=== PATIENT | male | born 1985 | race Caucasian/White ===

== ENCOUNTER → 2021-05-25 02:53 | Outpatient (CLI) | payer OTHER, SELFPAY ==
[2021-05-26 06:51] LABS: SARS-CoV-2 RNA PCR Negative
== END ==
PROVIDERS: PCP Physician Assistant; Visit Provider Physician Assistant
DX: B34.9 Viral infection, unspecified (principal); Z20.822 Contact with and (suspected) exposure to COVID-19
CPT/HCPCS: C9803; U0003; U0005

== ENCOUNTER 2021-09-14 13:03 | Emergency (ER) | payer OTHER, SELFPAY ==
[2021-09-14 13:14] VITALS: BP 124/77; PULSE 60; RESP 16; TEMP 37.3; O2SAT 99
--- NOTE | 2021-09-14 13:17 | ED.SKABFB ---
HPI - Skin/Abscess/Foreign Bdy General Chief complaint: Skin/Abscess/Foreign Body Stated complaint: cold sore Time Seen by Provider: 09/14/21 13:17 Source: patient Mode of arrival: ambulatory Limitations: no limitations History of Present Illness HPI narrative: 35-year-old male presents with complaint for concern to herpes rash to left upper eyelid. He states that there is some burning pain there. Reports that he had a cold sore approximately 2 to 3 weeks ago. Did take 10 days of antivirals that his PCP prescribed for him. Cold sore was never examined by his PCP. He states that it feels like cold sore keeps trying to come back . States if he applies Abreva it is keeping the cold sore away. He states that he sees little white dots and they go back down when he applies Abreva. Yesterday he went to [facility] for further evaluation of why his cold sore outbreak is still happening. Reports that he was told that there was no cold sore by the PA, but he physician told him that he did see some white dots. Patient states that the PA touched the herpes rash to his upper lip and then touched the patient's eye and forehead area With the same glove. Patient thinks that she spread of the herpes rash to his eyelid. Patient was referred to security software engineer by [facility] But he has not scheduled an appointment. All systems reviewed and negative except as noted above. Related Data Home Medications Medication Instructions Recorded Confirmed carvedilol 09/14/21 furosemide 09/14/21 spironolactone 09/14/21 spironolactone 09/14/21 valsartan 09/14/21 Allergies Allergy/AdvReac Type Severity Reaction Status Date / Time No Known Allergies Allergy Verified 09/14/21 13:14 Review of Systems Review of Systems: CONSTITUTIONAL: Denies fever, chills, or sweats. EYES: Denies visual changes, redness, or discharge. ENT: Denies rhinorrhea, congestion, sore throat, or otalgia. CARDIOVASCULAR: Denies chest pain, palpitations, or edema. RESPIRATORY: Denies cough or dyspnea. GASTROINTESTINAL: Denies abdominal pain, nausea, vomiting, or diarrhea. GENITOURINARY: Denies dysuria or hematuria. SKIN: Denies rash or itching. Reports redness and burning to left upper eyelid. MUSCULOSKELETAL: Denies back pain, joint pain, or myalgia. NEUROLOGIC: Denies headache, numbness, or weakness. PSYCHIATRIC: Denies anxiety or depression. All other systems reviewed are negative, except as documented in HPI. PMFSH Comments At time of signature, agree with nursing past medical, surgical, social and family history. There is no relevant family history pertinent to the presenting complaint. Exam Narrative: GENERAL: This is a well-nourished, well-developed patient, in no apparent distress. HEAD: normocephalic, atraumatic. EYES: PERRL. Sclera clear/white. Vision is grossly intact. EARS: External ears normal NOSE: External nose normal . NECK: Neck supple, non-tender without lymphadenopathy, masses or thyromegaly. CARDIOVASCULAR: Regular rate and rhythm without murmurs, gallops, or rubs. RESPIRATORY: Clear to auscultation. Breath sounds equal bilaterally. No wheezes, rales, or rhonchi. SKIN: warm, Dry, intact with no suspicious lesions or rash, good texture and turgor. Erythema and mild swelling to left upper eyelid. No vesicles noted. NEURO: awake, alert, and oriented to person, place and time. There were no obvious focal neurologic abnormalities. EXTREMITIES: Normal range of motion to all extremities. Course Course Level of Care: Express Care Visit Vital Signs Vital signs: Vital Signs Temperature 37.3 C 09/14/21 13:14 Pulse Rate 60 09/14/21 13:14 Respiratory Rate 16 09/14/21 13:14 Blood Pressure 124/77 09/14/21 13:14 Pulse Oximetry 99 09/14/21 13:14 Temperature 37.3 C 09/14/21 13:14 Pulse Rate 60 09/14/21 13:14 Respiratory Rate 16 09/14/21 13:14 Blood Pressure 124/77 09/14/21 13:14 Pulse Oximetry 99 09/14/21 13:14
== END 2021-09-14 14:40 | disposition home or self-care (01) ==
PROVIDERS: Emergency Provider Nurse Practitioner Family; PCP Physician Assistant
DX: B02.9 Zoster without complications (principal); I10 Essential (primary) hypertension; Z86.16 Personal history of COVID-19
CPT/HCPCS: 99213; G0463

== ENCOUNTER 2022-05-31 23:46 | Emergency (ER) | payer OTHER, SELFPAY ==
[2022-05-31 23:52] VITALS: BP 147/95; PULSE 82; RESP 14; TEMP 36.4; O2SAT 99
--- NOTE | 2022-06-01 00:03 | ED.EYEPROB ---
HPI - Eye Problem General Chief complaint: Eye Problems Stated complaint: right eye pain Time Seen by Provider: 06/01/22 00:02 Source: patient Mode of arrival: ambulatory Limitations: no limitations History of Present Illness HPI Narrative: Patient is a 36 y/o male who presents to the ED with c/o R eye pain. Patient reports he woke up yesterday, 05/31, with a burning sensation in his right eye. He felt as though something was in his eye or he was having allergies. He rubbed his eye around 11 AM yesterday and reported having worsening pain, redness, foreign body sensation since then. Last night he also developed thick mucopurulent discharge from the eye. No symptoms in left eye. He does not wear contacts or glasses. Denies any vision changes, blurry vision, double vision. Denies pain with eye movement. Denies fevers. Related Data Home Medications Medication Instructions Recorded Confirmed carvedilol 25 mg tablet 09/14/21 furosemide 40 mg tablet 09/14/21 spironolactone 25 mg tablet 09/14/21 spironolactone 50 mg tablet 09/14/21 valsartan 320 mg tablet 09/14/21 Allergies Allergy/AdvReac Type Severity Reaction Status Date / Time rosuvastatin [From Crestor] Allergy Hives Verified 05/31/22 23:55 Review of Systems Review of Systems: CONSTITUTIONAL: Denies fever, chills, or sweats. EYES: See HPI. ENT: Denies rhinorrhea, congestion, sore throat. All systems reviewed & are unremarkable except as noted in HPI and below PMFSH Past Medical History Medical History (Updated 06/01/22 @ 00:35 by Eladia Richter PA-C) CHF (congestive heart failure) HTN (hypertension) Long COVID Surgical History Surgical History (Updated 06/01/22 @ 00:17 by Eladia Richter PA-C) No pertinent past surgical history Social History Social History (Updated 06/01/22 @ 00:17 by Eladia Richter PA-C) Smoking status: Never smoker Exam Narrative: GENERAL: Well appearing, morbidly obese, non-toxic, in no acute distress. HEAD: Normocephalic, atraumatic. EYES: PERRLA/EOMI, no pain with extra ocular movements. No periorbital swelling or redness. R eye with diffuse conjunctival injection. Mild amount of mucopurulent drainage from R eye. Conjunctiva clear on L eye, no significant drainage. NECK: Supple. No adenopathy, no masses. RESPIRATORY: Airway patent, respirations nonlabored. CARDIOVASCULAR: Regular rate and rhythm without murmurs, rubs, or gallops. Radial pulses 2+ and equal bilaterally. MUSCULOSKELETAL: Moves all extremities. Strength/ROM intact without gross deformities. SKIN: Warm, dry, normal color. No rashes. NEURO: A&O X3. Speech clear. Cranial nerves II-XII grossly intact. Steady gait. No ataxic movements. PSYCHIATRIC: Appropriate mood and affect. Normal interaction. Course Vital Signs Vital signs: Vital Signs Temperature 97.6 F 05/31/22 23:52 Pulse Rate 82 05/31/22 23:52 Respiratory Rate 14 05/31/22 23:52 Blood Pressure 147/95 H 05/31/22 23:52 Pulse Oximetry 99 05/31/22 23:52 Oxygen Delivery Room Air 05/31/22 23:52 Temperature 97.6 F 05/31/22 23:52 Pulse Rate 82 05/31/22 23:52 Respiratory Rate 14 05/31/22 23:52 Blood Pressure 147/95 H 05/31/22 23:52 Pulse Oximetry 99 05/31/22 23:52 Oxygen Delivery Room Air 05/31/22 23:52 MDM - Eye Problem MDM Narrative Medical decision making narrative: Patient presented to ED with 1 day history of right eye redness, foreign body sensation, drainage. No vision changes reported. Visual acuity equal bilaterally. Exam consistent with bacterial conjunctivitis of right eye. Patient did report rubbing his eye prior to the onset of sx's. Fluorescein staining was performed with Christina lamp examination and there were no signs of conjunctival or corneal abrasion. Patient will be prescribed erythromycin ointment for further management of conjunctivitis. Advised him to follow-up with chocolate molder for further evaluation an
[2022-06-01] MEDS: FLUORESCEIN SOD 1 MG/STRIP EACH EYE (00:27)
[2022-06-01] MEDS: ERYTHROMYCIN OPHTH OINTMENT 1 GM TUBE 1 APPLIC EACH EYE (01:04)
== END 2022-06-01 01:28 | disposition home or self-care (01) ==
PROVIDERS: Emergency Provider Physician Assistant
DX: H10.89 Other conjunctivitis (principal); I50.9 Heart failure, unspecified; I11.0 Hypertensive heart disease with heart failure; U09.9 Post COVID-19 condition, unspecified
CPT/HCPCS: 99283; A9270

== ENCOUNTER 2023-10-18 14:59 | Emergency (ER) | payer OTHER, SELFPAY ==
--- NOTE | 2023-10-18 15:02 | ED.EAR ---
HPI - Ear Problem General Chief complaint: Ear Stated complaint: right ear sensitive,lightheaded Time Seen by Provider: 10/18/23 15:01 Source: patient Mode of arrival: ambulatory Limitations: no limitations History of Present Illness HPI Narrative: Patient is a 37-year-old male who presents with 3 days of ear fullness causing lightheadedness. Patient denies any congestion, sore throat, cough, fever, chills, nausea, vomiting, diarrhea. Does not take any daily allergy medicine. Does report having seasonal allergies. Patient also complains of long COVID symptoms that he has specialists for. MD Complaint: ear pain Related Data Home Medications Medication Instructions Recorded Confirmed carvedilol 25 mg tablet 25 mg PO DAILY 10/18/23 10/18/23 furosemide 40 mg tablet 40 mg PO DAILY 10/18/23 10/18/23 spironolactone 50 mg tablet 50 mg PO DAILY 10/18/23 10/18/23 valsartan 320 mg tablet 320 mg PO DAILY 10/18/23 10/18/23 Allergies Allergy/AdvReac Type Severity Reaction Status Date / Time lisinopril Allergy Intermediate Rash Verified 10/18/23 15:46 rosuvastatin [From Crestor] Allergy Intermediate Hives Verified 10/18/23 15:18 ibuprofen AdvReac Intermediate Hypertensio Verified 10/18/23 15:46 n Review of Systems Review of Systems: All systems reviewed & are unremarkable except as noted in HPI and below Constitutional: Constitutional: Denies body ache(s), Denies chills, Denies fever(s), Denies headache(s) and Denies malaise Eyes: Eyes: Denies blurry vision, Denies eye discharge and Denies irritation ENT: Reports otalgia, Denies headache(s), Denies nasal congestion, Denies nasal discharge and Denies sore throat Cardiovascular: Cardiovascular: Denies chest pain, Denies edema, Denies palpitations and Denies dyspnea on exertion Respiratory: Respiratory: Denies cough and Denies dyspnea on exertion Gastrointestinal: Gastrointestinal: Denies abdominal pain, Denies diarrhea, Denies nausea and Denies vomiting Musculoskeletal: Musculoskeletal: Denies back pain, Denies arthralgias and Denies muscle weakness Integumentary/Breasts: Skin/Breast: Denies pruritus and Denies rash Neurologic: Denies headache(s) Psychiatric: Psychiatric: Reports no additional psychiatric complaints Endocrine: Endocrine: Denies palpitations PMFSH Past Medical History Medical History CHF (congestive heart failure) HTN (hypertension) Long COVID Surgical History Surgical History No pertinent past surgical history Social History Social History Smoking status: Never smoker Comments At time of signature, agree with nursing past medical, surgical, social and family history. There is no relevant family history pertinent to the presenting complaint? Exam Const: General: cooperative, healthy appearing, no acute distress and well nourished Nutritional Appearance: well nourished Orientation/consciousness: patient oriented x3 Limitations: no limitations HENMT: Head: normal to inspection, normocephalic and atraumatic Ears: hearing grossly normal bilaterally, EAC's normal, no periauricular adenopathy and TM abnormal wth effusion serous bilateral Face/Nose/Sinus: Normal external nose present, Normal nares present, Normal nasal mucous membranes and turbinates present, No nasal discharge present, normal facial exam and sinuses nontender Face and sinus: normal facial exam and sinuses nontender Mouth: Yes Normal oral and palatal mucosa present, Yes lip normal, Yes tongue normal and Yes moist mucous membranes Throat: posterior oropharynx normal, tonsils normal and uvula midline Eyes: General: appearance normal, both eyes and all related structures Alignment and Position: alignment normal and position normal Eyelids: eyelids normal Pupils: Equal, round and reactive pupils present EOM: EOMs i
[2023-10-18 15:22] VITALS: BP 120/65; PULSE 64; RESP 16; TEMP 37.2; O2SAT 99
== END 2023-10-18 16:11 | disposition home or self-care (01) ==
PROVIDERS: Emergency Provider Nurse Practitioner Family
DX: H65.03 Acute serous otitis media, bilateral (principal); R42 Dizziness and giddiness; I11.0 Hypertensive heart disease with heart failure; I50.9 Heart failure, unspecified; Z86.16 Personal history of COVID-19
CPT/HCPCS: 99213; G0463

== ENCOUNTER 2024-01-01 13:57 | Emergency (ER) | payer OTHER, SELFPAY ==
[2024-01-01 14:05] VITALS: BP 126/69; PULSE 68; RESP 16; TEMP 37.3; O2SAT 98
--- NOTE | 2024-01-01 14:05 | ED.EYEPROB ---
HPI - Eye Problem General Chief complaint: Eye Problems Stated complaint: Eyes Irritation Time Seen by Provider: 01/01/24 14:08 Source: patient Mode of arrival: ambulatory Limitations: no limitations History of Present Illness HPI Narrative: Getachew is a 38-year-old male patient presenting to the clinic today with complaints of irritation that began over the last 24 hours. He reports due to long COVID he gets conjunctivitis once every year. States he has tried using Cipro with success. Had tried putting an old prescription drop in his eye yesterday and this cleared his eyes but he is requesting a refill of the ciprofloxacin eyedrops. States he has noticed some crusting in his eyes and his eyes were red yesterday. Related Data Home Medications Medication Instructions Recorded Confirmed carvedilol 25 mg tablet 25 mg PO DAILY 10/18/23 01/01/24 spironolactone 50 mg tablet 50 mg PO DAILY 10/18/23 01/01/24 valsartan 320 mg tablet 320 mg PO DAILY 10/18/23 01/01/24 Allergies Allergy/AdvReac Type Severity Reaction Status Date / Time lisinopril Allergy Intermediate Rash Verified 01/01/24 14:04 rosuvastatin [From Crestor] Allergy Intermediate Hives Verified 01/01/24 14:04 ibuprofen AdvReac Intermediate Hypertensio Verified 01/01/24 14:04 n Review of Systems Review of Systems: Pertinent positives per HPI. Patient denies any fever, chills, rash, headache, visual changes, dizziness, cough, runny nose, sore throat, shortness of breath, chest pain, palpitations, nausea, vomiting, diarrhea, constipation, abdominal pain, or any urinary issues. [facility] Past Medical History Medical History CHF (congestive heart failure) HTN (hypertension) Long COVID Surgical History Surgical History No pertinent past surgical history Social History Social History Smoking status: Never smoker Comments At the time of my signature, I reviewed and agree with the nursing past medical, surgical, social, and family history. There is no relevant family history pertinent to the patient complaint. Exam Narrative: General: Well-developed, well nourished, in no apparent distress Head: Normocephalic, atraumatic Eyes: Pupils equally round and reactive to light bilaterally, EOM intact, mild injection sclera and conjunctive clear, no discharge, lids normal Ears: TMs intact and clear, ear canals clear, no drainage, grossly hearing normal. Nose: Nares patent, clear nasal discharge, no inflammation, no sinus tenderness. Mouth: Oropharynx without lesions or masses, good dentition, MMM. Neck: Supple, trachea midline, no enlargement of anterior or posterior cervical nodes, no thyroid masses or goiter palpable. Cardio: Regular rate and rhythm, s1 and s2 normal, no murmur appreciated. Resp: Clear to auscultation bilaterally anteriorly and posteriorly, no rhonchi, rales, wheezing or rubs Course Course Emergency Course: Portions of this record may have been created with voice recognition software. Level of Care: Express Care Visit Vital Signs Vital signs: Vital signs reviewed MDM - Eye Problem MDM Narrative Medical decision making narrative: At the time of visit patient is resting comfortably on the exam table. Patient appears to be nontoxic. Plan: I suspect patient has allergic conjunctivitis. Discussed trying allergy drops for his symptoms and he voiced understanding. Will send in ciprofloxacin eyedrops if needed however I feel the azelastine drops will be efficient. Supportive measures were discussed with the patient and they voiced understanding discharge instructions and agrees to treatment plan. Return precautions reviewed Differential Diagnosis Differential diagnosis: Likely corneal abrasion, conjunctivitis, acute iritis, hyphema, periorbital cellulitis, subconjunct
== END 2024-01-01 14:19 | disposition home or self-care (01) ==
PROVIDERS: Emergency Provider Nurse Practitioner Family
DX: H10.9 Unspecified conjunctivitis (principal); I11.0 Hypertensive heart disease with heart failure; H50.9 Unspecified strabismus; Z86.16 Personal history of COVID-19
CPT/HCPCS: 99213; G0463

== ENCOUNTER 2024-06-23 15:58 | Emergency (ER) | payer OTHER, SELFPAY ==
[2024-06-23 16:16] VITALS: BP 146/78; PULSE 69; RESP 16; TEMP 37.1; O2SAT 98
--- NOTE | 2024-06-23 16:49 | ED_ITS ---
HPI - URI/Sore Throat General Chief Complaint: Upper Respiratory Infection Stated Complaint: fluid behind ears ,cough, chest martino Time Seen by Provider: 06/23/24 16:49 Source: patient and RN notes reviewed Mode of arrival: ambulatory Limitations: no limitations History of Present Illness HPI Narrative: 38-year-old male presents with concern for cough, chest burning, fluid in his ears. He reports he had a viral illness last week, this is day 8. Reports most symptoms have resolved except for the cough and chest burning. MD elicited complaint: cough Related Data Home Medications ?Medication ?Instructions ?Recorded ?Confirmed ?Last Taken ?Type carvedilol 25 mg tablet 25 mg PO DAILY 10/18/23 06/23/24 Unknown History spironolactone 50 mg tablet 50 mg PO DAILY 10/18/23 06/23/24 Unknown History valsartan 320 mg tablet 320 mg PO DAILY 10/18/23 06/23/24 Unknown History furosemide 40 mg tablet 40 mg PO DAILY 06/23/24 06/23/24 Unknown History Allergies Allergy/AdvReac Type Severity Reaction Status Date / Time lisinopril Allergy Intermediate Rash Verified 06/23/24 16:10 rosuvastatin (From Crestor) Allergy Intermediate Hives Verified 06/23/24 16:10 ibuprofen AdvReac Intermediate Hypertensio Verified 06/23/24 16:10 n Review of Systems Review of Systems: CONSTITUTIONAL: Denies malaise, chills, sweats, or fever. EYES: Denies visual changes, redness, or discharge. ENT: Denies rhinorrhea, congestion, sinus pain, and sore throat.. Reports ears feeling full CARDIOVASCULAR: Denies chest pain, palpitations, or edema. RESPIRATORY: Reports cough, chest congestion, coughing fits. Denies dyspnea. GASTROINTESTINAL: Denies abdominal pain, nausea, vomiting, diarrhea SKIN: Denies rash or itching. MUSCULOSKELETAL: Denies myalgia. NEUROLOGIC: Denies headache. All systems reviewed & are unremarkable except as noted in HPI and below PMFSH Past Medical History Medical History CHF (congestive heart failure) HTN (hypertension) Long COVID Surgical History Surgical History No pertinent past surgical history Social History Social History Smoking status: Never smoker Comments At time of signature, agree with nursing past medical, surgical, social and family history. There is no relevant family history pertinent to the presenting complaint Exam Narrative: GENERAL: Well-appearing, well-nourished, and in no acute distress. HEAD: Normocephalic EYES: PERRLA, conjunctivae clear ENT: Nares clear. Mucous membranes moist. TM pearly hilario with dull light reflex bilaterally; no tragal tenderness. Oropharynx not erythematous without lesions. Tonsils not enlarged and without exudate, no drooling, no hoarseness, no trismus, uvula midline. NECK: Supple. No lymphadenopathy CHEST: Clear to auscultation, breath sounds equal. No wheezing, rhonchi, rales, or stridor. No respiratory distress, speaks in full sentences. HEART: Regular rate and rhythm. No murmur heard. SKIN: Warm, dry, no rash. NEURO: Alert and oriented x3. PSYCH: Normal mood and affect Course Course Emergency Course: Patient is aware of diagnosis, understands and agrees to treatment plan. Anticipatory guidance given. Patient agrees to follow-up as directed and is aware of reasons to seek care at the emergency department. Portions of this record may have been created with voice recognition software Level of Care: Express Care Visit Vital Signs Vital signs: Vital Signs Temperature 98.7 F 06/23/24 16:16 Pulse Rate 69 06/23/24 16:16 Respiratory Rate 16 06/23/24 16:16 Blood Pressure 146/78 H 06/23/24 16:16 Pulse Oximetry 06/23/24 16:16 Oxygen Delivery Room Air 06/23/24 16:16 Temperature 98.7 F 06/23/24 16:16 Pulse Rate 69 06/23/24 16:16 Respiratory Rate 16 06/23/24 16:16 Blood Pressure 146/78 H 06/23/24 16:16 Pulse Oximetry 06/23/24 16:16 Oxygen Delivery Room Air 06/23/24 16:16 Reviewed. MDM - URI/Sore Throat MDM Narrative Medical decision making narrative: Differential diagnosis considered: Leos virus, strep pharyngitis, allergic rhinitis, upper respiratory tract infection, sinusitis, rhinosinusitis, nasoph aryngitis. viral pharyngitis, otitis media, otitis externa, pneumonia, bronchitis, viral cough syndrome, viral syndrome, and influenza. Exam findings show no acute concerns or changes; patient is non-toxic appearing and is in no distress. Patient is appropriate for outpatient treatment and follow-up. Lab Data Attestation: I reviewed the patient's lab results. Critical Care Time Critical Care Time Critical Care Time: No Discharge Plan Discharge Clinical Impression: Lower respiratory tract infection Patient Disposition: Home, Self-Care Condition: Stable Instructions: Antibiotic Form, Acute Cough (ED) Additional Instructions: Take medication as directed Recommend antihistamine such as Benadryl at night time and Zyrtec or Meaghan during the day Also, recommend symptomatic treatment includes: rest, fluids, and increase humidity of the air at home. Recommend Acetaminophen as directed on the bottle to reduce fever, pain, headache. Avoid smoking/second-hand smoke. Please schedule a follow-up visit with your personal physician for further evaluation and treatment within 3-5days. Including recheck and discussion of your blood pressure. If your symptoms persist, change or worsen significantly before you can contact your personal physician then please, without delay, go to the emergency department for further evaluation. Patient Language: Yoruba Prescriptions: New azithromycin [Zithromax Z-Rupert] 250 mg tablet See Rx Instructions .ROUTE .COMPLEX Qty: 6 0RF Rx Instructions: take 500 mg today (day 1), then 250 mg for 4 days (days 2-5) methylprednisolone [Medrol (Rupert)] 4 mg tablets,dose pack See Rx Instructions .ROUTE .COMPLEX Qty: 21 0RF Rx Instructions: orally per package directions No Action carvedilol 25 mg tablet 25 mg PO DAILY valsartan 320 mg tablet 320 mg PO DAILY spironolactone 50 mg tablet 50 mg PO DAILY furosemide 40 mg tablet 40 mg PO DAILY Follow-up/Referrals: PHYSICIAN,COMPUTATIONAL BIOLOGIST [Primary Care Provider] - Time of Disposition: 17:02
== END 2024-06-23 17:13 | disposition home or self-care (01) ==
PROVIDERS: Emergency Provider Nurse Practitioner
DX: J22 Unspecified acute lower respiratory infection (principal); I11.0 Hypertensive heart disease with heart failure; I50.9 Heart failure, unspecified
CPT/HCPCS: 99213; G0463